=== PATIENT | female | born 1975 | race Caucasian/White ===

== ENCOUNTER 2020-12-09 00:51 | Day surgery (SDC) | payer OTHER, SELFPAY ==
[2020-12-02 14:43] VITALS: BMI 26.6
--- NOTE | 2020-12-09 09:41 | PM.HPGS ---
History of Present Illness History of Present Illness Consent: Risks, benefits, and alternatives have been discussed and questions answered. Patient agrees to proceed with procedure. Chief complaint: menorrhagia Narrative: Shilpi Oreilly is a 45 year old female with complaints of abnormal uterine bleeding for last few months. Patient labs were normal. Patient seen in office with Dr. Chapa and scheduled for a endometrial biopsy Review of Systems Review of Systems: All systems reviewed & are unremarkable except as noted in HPI and below PMFSH Past Medical History Medical History (Updated 12/09/20 @ 10:18 by Antolin Tinoco MD) Abnormal uterine bleeding (AUB) Social History Social History Smoking status: Never smoker Alcohol intake: current Alcohol use details: COUPLE/MONTH - SOCIAL Substance use: never Substance use type: does not use Living arrangements: with family Spiritual care concerns: No Meds Home Medications and Allergies Home Medications Medication Instructions Recorded Confirmed Type No Home Medications 12/02/20 12/02/20 History Allergies Allergy/AdvReac Type Severity Reaction Status Date / Time No Known Allergies Allergy Mild Verified 07/12/12 18:42 Exam Const: General: well developed Nutritional Appearance: average body habitus Orientation/consciousness: patient oriented x3 Resp: Auscultation: clear to auscultation bilaterally Cardio: Rate: regular rate Rhythm: regular rhythm : Speculum Exam - Vagina: vaginal bleeding Speculum Exam - Cervix: normal appearance of the cervix (with IUD strings) Bimanual exam- vagina & uterus: normal bimanual exam Bimanual Exam- Adnexa, other: normal adnexae Assessment and Plan Assessment and plan (1) Abnormal uterine bleeding (AUB): Code(s): N93.9 - Abnormal uterine and vaginal bleeding, unspecified Status: Acute Assessment and Plan: scheduled for a hysteroscopy dilation and curettage. Discussed IUD possible being removed or shifted.
--- NOTE | 2020-12-09 11:41 | WPDHPUPDATE1 ---
History and Physical Update Update Date/Time: 12/09/20 11:41 History and Physical has been reviewed, including an updated exam of the patient. There are NO changes in the patient's condition. Risks, benefits, and alternatives have been discussed and questions answered. Patient agrees to proceed with procedure.
[2020-12-09] MEDS: ACETAMINOPHEN 500 MG TABLET 1000 MG PO (12:50)
--- NOTE | 2020-12-09 12:59 | WPDANESEPPF ---
Anes - Initial Pre Proc Eval Procedure: Operation Date: 12/09/20 14:00 Proposed Procedures p Hysteroscopy Dilation and Curettage - Antolin Tinoco MD Date/Time: 12/09/20 12:59 Surgeon: Antolin Tinoco MD Pre Op Diagnosis: menorrhagia Patient Data Age: 45 Gender: F Height: 1.7 m Weight: 77.11 kg Allergies Allergy/AdvReac Type Severity Reaction Status Date / Time No Known Allergies Allergy Mild Verified 07/12/12 18:42 Home Medications Medication Instructions Recorded Confirmed Type No Home Medications 12/02/20 12/02/20 History Patient hx anesthesia problems: none Family hx anesthesia problems: none Results Review: All pre-operative results and documents have been reviewed as part of the pre-operative evaluation. [facility] Past Medical History Medical History Abnormal uterine bleeding (AUB) Social History Social History Smoking status: Never smoker Alcohol intake: current Alcohol use details: COUPLE/MONTH - SOCIAL Substance use: never Substance use type: does not use Living arrangements: with family Spiritual care concerns: No Anes - Eval Final PreProcedure Day of Procedure 12/09/20 12:59 Patient weight: overweight Heart: regular rate and rhythm Lungs: clear to auscultation Airway: Mallampati scale class II Neurological: alert and oriented Last oral intake: >/= 8 hours ASA classification: II Emergent: no Anesthetic plan: proceed Anesthesia type and monitoring: general GIVS and standard monitoring Results Review: All pre-operative results and documents have been reviewed as part of the pre-operative evaluation. Informed Consent: The patient's anesthetic plan and its attendant risks and benefits were discussed with the patient/family/POA. Questions were solicited and answers provided to the satisfaction of the patient/family/POA.
[2020-12-09 13:01] VITALS: BP 137/78; PULSE 85; TEMP 36.7; O2SAT 100
[2020-12-09] MEDS: LACTATED RINGERS 1,000 ML 30 ML IV CONT (13:07)
[2020-12-09] MEDS: LIDOCAINE HCL 1% PF 30 ML VIAL INFILTRATE (13:57)
[2020-12-09 14:37] VITALS: BP 148/71; PULSE 92; RESP 14; O2SAT 100
--- NOTE | 2020-12-09 14:42 | P.OP_ITS ---
Procedure Note - Detailed Date of Procedure 12/09/20 Pre-op Diagnosis menorrhagia Post-op Diagnosis same Procedure Performed hysteroscopy with dilation and curettage Surgeon Antolin Tinoco MD Anesthesia MAC and local Indications Abnormal uterine bleeding Findings ParaGard IUD the in uterine cavity Description of Procedure patient taken to the operating room with IV running. She was prepped draped normal sterile fashion placed lithotomy position. Enid speculum was placed into the vagina anterior lip of the cervix was grasped with a single-tooth tenaculum. The cervix was injected at the 2 and 10 o'clock position with 5cc of lidocaine bilaterally. The the uterus was sounded to 8cm. And the cervix was serially dilated to an 8 with Hegar dilators. Hysteroscope was introduced and noted IUD in the uterine cavity in appropriate position. Bilateral ostia noted. Otherwise normal cavity. Hysteroscope was removed sharp curettage was performed in all 4 quadrants of the uterus. IUD noted to be in position. Specimen was sent to pathology instruments were removed from the vagina patient was taken to the recovery room in stable condition. Estimated Blood Loss 10 Drains No Packing No Pathology yes Condition stable
[2020-12-09 15:00] VITALS: BP 152/75; PULSE 79; RESP 14
[2020-12-09 15:15] VITALS: BP 155/71; PULSE 72; RESP 14
== END 2020-12-09 15:21 | disposition home or self-care (01) ==
PROVIDERS: PCP Nurse Practitioner Family; Visit Provider Obstetrics & Gynecology
PROC: 0U5B8ZZ Destruction of Endometrium, Via Natural or Artificial Opening Endoscopic (ICD-10-PCS; CPT 58563; principal; 2020-12-09 14:00)
DX: N92.0 Excessive and frequent menstruation with regular cycle (principal)
CPT/HCPCS: 58558; 88305; A9270; J1100; J2250; J2405; J2704; J3010; J7030; J7120

== ENCOUNTER → 2021-10-02 08:18 | Outpatient (CLI) | payer OTHER, SELFPAY ==
--- NOTE | ~2021-10-02 | MMUS_ITS ---
EXAMINATION: MM diagnostic winnie LT w dario, US breast LT limited HISTORY: Palpable mass in the upper outer quadrant of the left breast TECHNIQUE: Craniocaudal, mediolateral, and mediolateral oblique 3-D tomosynthesis images of the left breast were performed and synthetic 2-D images were generated. CAD analysis was submitted and interpr eted. High resolution limited left breast ultrasound was performed. COMPARISON: 06/29/2021, 06/14/2020, 12/23/2017, 12/18/2017 BREAST PARENCHYMAL COMPOSITION: The breasts are heterogeneously dense, which may obscure small masses . FINDINGS: MAMMOGRAPHIC FINDINGS: There is architectural distortion in the posterior third of the upper outer quadrant of the left olive st without discrete mass identified in the area of palpable abnormality. ULTRASOUND: There is an approximately 3.9 x 2.5 cm irregular hypoechoic mass at the 2:00 location 4 cm from the n ipple corresponding to the area of palpable concern. IMPRESSION: 1. Indeterminate left breast mass. 2. Ultrasound-guided biopsy is recommended. BI-RADS category 4, suspicious findings. Reviewed, dictated and finalized at location A. IMPRESSION: 1. Indeterminate left breast mass. 2. Ultrasound-guided biopsy is recommended. BI-RADS category 4, suspicious findings.
== END ==
PROVIDERS: PCP Nurse Practitioner Family; Visit Provider Nurse Practitioner
DX: N63.20 Unspecified lump in the left breast, unspecified quadrant (principal); R92.8 Other abnormal and inconclusive findings on diagnostic imaging of breast
CPT/HCPCS: 76642; 77061; 77065; G0279

== ENCOUNTER 2023-08-11 13:33 | Outpatient (CLI) | payer OTHER, SELFPAY ==
--- NOTE | ~2023-08-11 | MR_ITS ---
EXAMINATION: MR brain/brain stem wo/w con DATE: 08/11/2023 14:16 INDICATION: Dizziness. Breast cancer. TECHNIQUE: Magnetic resonance imaging (MRI) of the brain and brainstem was performed without and with 14 mL MultiHance intravenous contrast. COMPARISON: None. FINDINGS: There is no intracranial hemorrhage, acute infarction, or abnormal intracranial mass lesion . The ventricles are normal in size. The paranasal sinuses are clear. The orbits are normal. The mast oid air cells are normal. IMPRESSION: 1. Normal brain. Reviewed, dictated and finalized at location E. IMPRESSION: 1. Normal brain.
== END 2023-08-11 13:34 | disposition home or self-care (01) ==
LOC: ANHIMG 13:33
PROVIDERS: PCP Nurse Practitioner Family
DX: R42 Dizziness and giddiness (principal); C50.912 Malignant neoplasm of unspecified site of left female breast; Z17.0 Estrogen receptor positive status [ER+]
CPT/HCPCS: 70553; A9577